=== PATIENT | female | born 1955 | race Caucasian/White ===

== ENCOUNTER 2016-09-02 21:58 | Emergency (ER) | payer BC ==
[2016-09-02] MEDS ORDERED: IBUPROFEN 200 MG TAB PO ONE ×2 (22:32→22:35)
--- NOTE | 2016-09-02 22:35 | EDPHY ---
H & P Stated Complaint: cough cold sx vomiting fever Time Seen by Provider: 09/02/16 22:27 HPI/ROS: CHIEF COMPLAINT: Flu-like symptoms x2 days HISTORY OF PRESENT ILLNESS: 61-year-old immunocompetent female with up-to-date influenza vaccination complaining of 2 days of flu-like symptoms, nasal congestion, nonproductive cough, myalgia, fever, chills, sinus congestion, development of vomiting and nausea this evening without abdominal pain. Denies urinary abnormality. Denies abdominal pain. Denies nuchal rigidity. Denies: Rash, international travel, known sick contacts, back or flank pain, altered mentation. PRIMARY CARE PROVIDER: Dr. Rhina Cottrell REVIEW OF SYSTEMS: A ten point review of systems was performed and is negative with the exception of the items mentioned in the HPI PAST MEDICAL & SURGICAL HISTORY: Up-to-date with influenza vaccine SOCIAL HISTORY:nonsmoker PHYSICAL EXAM (Prior to examination, patient consented to physical exam, hands were washed and my usual and customary physical exam procedures followed) 1) GENERAL: Well-developed, well-nourished, alert and oriented. Appears nontoxic . 2) HEAD: Normocephalic, atraumatic 3) HEENT: Pupils equal, round, reactive to light bilaterally. Sclera anicteric. Nasopharynx: Congestion, rhinorrhea., oropharynx, clear, no lesions , no tonsillar enlargement or tonsillar exudate. Ears bilaterally with normal tympanic membranes. 4) NECK: Full range of motion, no meningeal signs. 5) LUNGS: Clear auscultation bilaterally, no wheezes, no rhonchi, no retractions. 6) HEART: Regular rate and rhythm, no murmur, no heave, no gallop. 7) ABDOMEN: No guarding, no rebound, no focal tenderness, negative McBurney's, negative Short's, negative Rovsing's, negative peritoneal sign, 8) MUSCULOSKELETAL: Moving all extremities, no focal areas of tenderness, no obvious trauma. No peripheral edema or discoloration. 9) BACK: No CVA tenderness, no midline vertebral tenderness, no fluctuance, no step-off, no obvious trauma, no visual or palpable abnormality. 10) SKIN: No rash, no petechiae. 11) Psychiatric: Patient is oriented X 3, there is no agitation. DIFFERENTIAL DIAGNOSIS: in no particular order including but not limited to influenza, meningitis, pneumonia, sepsis - Personal History Current Tetanus/Diphtheria Vaccine: Yes Current Tetanus Diphtheria and Acellular Pertussis (TDAP): Yes Tetanus Vaccine Date: 2013 - Medical/Surgical History Hx Asthma: No Hx Chronic Respiratory Disease: No Hx Diabetes: No Hx Cardiac Disease: No Hx Renal Disease: No Hx Cirrhosis: No Hx Alcoholism: No Hx HIV/AIDS: No Hx Splenectomy or Spleen Trauma: No Other PMH: kidney stones, UTI - Social History Smoking Status: Never smoked Constitutional: Initial Vital Signs Temperature (C) 38.5 C H 09/02/16 22:07 Heart Rate 106 H 09/02/16 22:07 Respiratory Rate 22 H 09/02/16 22:07 Blood Pressure 97/68 L 09/02/16 22:07 O2 Sat (%) 93 09/02/16 22:07 O2 Delivery Mode Room Air Allergies/Adverse Reactions: Penicillins Allergy (Verified 11/11/14 08:45) Home Medications: Medication Instructions Recorded No Home Meds 10/28/14 Oseltamivir Phosphate [Tamiflu] 75 mg PO BIDMEAL 5 Days 09/02/16 Medical Decision Making - Diagnostics Imaging: Chest, PA and lateral. History: Chest pain Findings: Heart size is within normal limits. Pulmonary vascularity is normal. The lungs are clear. No evidence of pleural effusion or pneumothorax. Minimal degenerative change is seen in the thoracic spine. Impression: No evidence of acute cardiopulmonary abnormality. Dictated By: Rich Cleveland MD Images reviewed by myself ED Course/Re-evaluation: Patient re-evaluated with serial exams. Discussed her positive flu. She is breathing comfortably. Chest x-ray is clear. I do not think that hospitalization is indicated. Will start her on Tamiflu. Usual customary influenza precautions instructions provided. Offered prophylaxis to her which he declines. - Data Points Laboratory Results: 09/02/16 09/02/16 09/02/16 Unknown 22:30 22:30 Influenza Typ A,B (DFA) POSITIVE FOR FLU A H (NEGATIVE) Group A Strep Screen NEGATIVE (NEGATIVE) Group A Strep DNA Pending Medications Given: Discontinued Medications Ibuprofen (Motrin) 800 mg PO EDNOW ONE Stop: 09/02/16 22:36 Last Admin: 02/25/17 22:36 Dose: 800 mg Departure - Departure Disposition: Home, Routine, Self-Care Clinical Impression: Influenza A Condition: Good Instructions: Influenza (ED) Additional Instructions: Return to the emergency department immediately for change in breathing habits, change in voice, change in swallowing habits, change in mental status, or any other symptoms that concern you. Referrals: Rhina Cottrell MD [Primary Care Provider] - 2-3 days, call for appt. Prescriptions: Oseltamivir Phosphate [Tamiflu] 75 mg PO BIDMEAL 5 Days
[2016-09-02 23:18] VITALS: TEMP 99.1
[2016-09-02] MEDS ORDERED: OSELTAMIVIR PHOSPHATE 75 MG CAP PO ONE (23:30)
[2016-09-03 00:07] VITALS: BP 94/71; PULSE 70; RESP 18; O2SAT 94
== END 2016-09-03 00:06 | disposition home or self-care (01) ==
DX: J10.1 Influenza due to other identified influenza virus with other respiratory manifestations (principal)

== ENCOUNTER → 2017-04-26 | Outpatient (CLI) | payer BC | LOC: FIMAGING 08:15 | PROVIDERS: ATTEND Internal Medicine | DX: Z12.31 Encounter for screening mammogram for malignant neoplasm of breast (principal); Z80.3 Family history of malignant neoplasm of breast | CPT/HCPCS: G0202 ==

== ENCOUNTER → 2018-05-01 | Outpatient (CLI) | payer BC | LOC: FIMAGING 15:10 | PROVIDERS: ATTEND Internal Medicine | DX: Z12.31 Encounter for screening mammogram for malignant neoplasm of breast (principal); Z80.3 Family history of malignant neoplasm of breast ==